=== PATIENT | male | born 1975 | race American Indian/Alaskan Native ===

== ENCOUNTER 2017-02-19 23:52 | Inpatient (IN) | payer OTHER ==
[2017-02-20 01:36] LABS: Basophils % (Auto) 0.6 % (0.0-1.8); Eosinophils % (Auto) 1.5 % (0.0-4.3); Hematocrit 44.9 % (35.5-45.6); Hemoglobin 14.9 gm/dl (11.8-15.2); Mean Corpuscular HGB Conc 33 % (32-34); Mean Corpuscular Hemoglobin 27 pg (28-32); Mean Corpuscular Volume 82 fl (84-94); Platelet Count 291 K/mm3 (140-440); Red Blood Count 5.45 M/mm3 (3.65-5.03); Red Cell Distribution Width 13.9 % (13.2-15.2); White Blood Count 8.5 K/mm3 (4.5-11.0)
[2017-02-20 02:07] LABS: Anion Gap 18 mmol/L; BUN/Creatinine Ratio 16.66; Blood Urea Nitrogen 15 mg/dL (9-20); Calcium 9.3 mg/dL (8.4-10.2); Carbon Dioxide 24 mmol/L (22-30); Chloride 102.2 mmol/L (98-107); Glucose 98 mg/dL (75-100); Potassium 3.8 mmol/L (3.6-5.0); Sodium 140 mmol/L (137-145)
--- NOTE | 2017-02-20 08:56 | Emergency Department Report ---
ED Chest Pain HPI - General Chief Complaint: Chest Pain Stated Complaint: CHEST PAIN Time Seen by Provider: 02/20/17 08:34 Source: patient Mode of arrival: Ambulatory Limitations: No Limitations - History of Present Illness Initial Comments: The patient describes recurrent substernal pressure which sometimes becomes a sharp pain for the last 3-4 days. It is nonexertional. It is not pleuritic. The patient has had some cough and occasional yellow sputum but no significant dyspnea and no fever or chills. He states he's never been to an emergency department nor had any evaluation of his heart in the past. He is unaware of any family history of VTE or CAD. He denies history of hypertension or hypercholesterolemia. I don't think he goes to the physician to often. He states he does not smoke except for very occasional "good cigar". MD Complaint: chest pain -: days(s) Onset: during rest Pain Location: substernal Pain Radiation: none Severity: mild, moderate Quality: pressure Consistency: intermittent, now resolved Improves With: nothing Worsens With: nothing Other Symptoms: cough. denies: fever, syncope, rash, acid taste in mouth, leg swelling, palpitations, burping Treatments Prior to Arrival: none Aspirin use within the Past 7 Days: (0) No - Related Data Home Medications Medication Instructions Recorded Confirmed Last Taken No Known Home Medications [No 07/17/16 07/17/16 Unknown Reported Home Medications] Allergies Allergy/AdvReac Type Severity Reaction Status Date / Time No Known Allergies Allergy Unverified 07/17/16 14:12 JOSE score - Jose Score Age > 65: (0) No Aspirin use within the Past 7 Days: (0) No 3 or more CAD Risk Factors: (0) No 2 or more Angina events in past 24 hrs: (0) No Known CAD with more than 50% Stenosis: (0) No Elevated Cardiac Markers: (0) No ST Deviation Greater than 0.5mm: (0) No JOSE Score: 0 ED Review of Systems ROS: Stated complaint: CHEST PAIN Other details as noted in HPI Constitutional: denies: chills, fever Eyes: denies: eye pain, eye discharge, vision change ENT: denies: ear pain, throat pain Respiratory: cough. denies: shortness of breath, wheezing Cardiovascular: chest pain. denies: palpitations Endocrine: no symptoms reported Gastrointestinal: denies: abdominal pain, nausea, diarrhea Genitourinary: denies: urgency, dysuria Musculoskeletal: denies: back pain, joint swelling, arthralgia Skin: denies: rash, lesions Neurological: denies: headache, weakness, paresthesias Psychiatric: denies: anxiety, depression Hematological/Lymphatic: denies: easy bleeding, easy bruising ED Past Medical Hx - Past Medical History Previous Medical History?: No - Surgical History Past Surgical History?: Yes Hx Appendectomy: Yes - Social History Smoking Status: Former Smoker Substance Use Type: None - Medications Home Medications: Home Medications Medication Instructions Recorded Confirmed Last Taken Type No Known Home Medications [No 07/17/16 07/17/16 Unknown History Reported Home Medications] ED Physical Exam - General Limitations: No Limitations General appearance: alert, in no apparent distress - Head Head exam: Present: atraumatic, normocephalic - Eye Eye exam: Present: normal appearance. Absent: scleral icterus - ENT ENT exam: Present: mucous membranes moist - Neck Neck exam: Present: normal inspection - Respiratory Respiratory exam: Present: normal lung sounds bilaterally. Absent: respiratory distress - Cardiovascular Cardiovascular Exam: Present: regular rate, normal rhythm. Absent: systolic murmur, diastolic murmur, rubs, gallop - GI/Abdominal GI/Abdominal exam: Present: soft, normal bowel sounds. Absent: distended, tenderness, guarding, rebound, rigid - Rectal Rectal exam: Present: deferred - Extremities Exam Extremities exam: Present: normal inspection, normal capillary refill. Absent: tenderness, pedal edema, joint swelling - Back Exam Back exam: Present: normal inspection - Neurological Exam Neurological exam: Present: alert, oriented X3, CN II-XII intact. Absent: motor sensory deficit - Psychiatric Psychiatric exam: Present: normal affect, normal mood - Skin Skin exam: Present: warm, dry, intact, normal color. Absent: rash ED Course Vital Signs 02/20/17 02/20/17 02/20/17 00:05 06:42 07:39 Temperature 98.4 F 98.2 F Pulse Rate 83 78 Respiratory 18 189 H Rate Blood Pressure 129/80 129/82 O2 Sat by Pulse 98 98 98 Oximetry 02/20/17 02/20/17 07:45 07:55 Temperature Pulse Rate 76 Respiratory 11 L 14 Rate Blood Pressure 120/68 O2 Sat by Pulse 97 95 Oximetry - Reevaluation(s) Reevaluation #1: Chest x-ray will be reviewed. The patient will be admitted to the hospitalist service for further care and evaluation. 02/20/17 08:56 Reevaluation #2: Discussed with Dr. Aj. Patient admitted to his service further care and evaluation stable condition. 02/20/17 09:08 ED Medical Decision Making - Lab Data Result diagrams: 02/20/17 00:13 02/20/17 00:13 Laboratory Results - last 24 hr 02/20/17 02/20/17 02/20/17 00:13 00:13 03:12 WBC 8.5 RBC 5.45 H Hgb 14.9 Hct 44.9 MCV 82 L MCH 27 L MCHC 33 RDW 13.9 Plt Count 291 Lymph % (Auto) 28.4 [place] % (Auto) 10.6 H Eos % (Auto) 1.5 Baso % (Auto) 0.6 Lymph # 2.4 [place] # 0.9 H Eos # 0.1 Baso # 0.1 Seg Neutrophils % 58.9 Seg Neutrophils # 5.0 Sodium 140 Potassium 3.8 Chloride 102.2 Carbon Dioxide 24 Anion Gap 18 BUN 15 Creatinine 0.9 Estimated GFR > 60 BUN/Creatinine Ratio 16.66 Glucose 98 Calcium 9.3 Troponin T < 0.010 < 0.010 02/20/17 06:11 WBC RBC Hgb Hct MCV MCH MCHC RDW Plt Count Lymph % (Auto) [place] % (Auto) Eos % (Auto) Baso % (Auto) Lymph # [place] # Eos # Baso # Seg Neutrophils % Seg Neutrophils # Sodium Potassium Chloride Carbon Dioxide Anion Gap BUN Creatinine Estimated GFR BUN/Creatinine Ratio Glucose Calcium Troponin T < 0.010 - EKG Data -: EKG Interpreted by Me EKG shows normal: sinus rhythm, axis, intervals, QRS complexes, ST-T waves Rate: normal - EKG Data Interpretation: no acute changes - Radiology Data interpreted by me: Chest x-ray no acute process Critical care attestation.: If time is entered above; I have spent that time in minutes in the direct care of this critically ill patient, excluding procedure time. ED Disposition Clinical Impression: Chest pain Qualifiers: Chest pain type: unspecified Qualified Code(s): R07.9 - Chest pain, unspecified Acute bronchitis Qualifiers: Bronchitis organism: unspecified organism Qualified Code(s): J20.9 - Acute bronchitis, unspecified Disposition: OP ADMITTED IP TO THIS HOSP Is pt being admited?: Yes Does the pt Need Aspirin: Yes Condition: Stable Instructions: Chest Pain (ED), Acute Bronchitis (ED) Referrals: PRIMARY CARE, [Primary Care Provider] - 3-5 Days Time of Disposition: 09:10
[2017-02-20 09:05] LABS: Urine Drugs of Abuse Note Disclamer
--- NOTE | 2017-02-20 09:18 | XRay Report ---
CHEST ONE VIEW INDICATION: Hypertension. COMPARISON: None similar at this institution. FINDINGS: Portable, single, frontal chest radiograph demonstrates normal cardiomediastinal silhouette. Clear lungs. Intact bones. Extrinsic EKG leads. CONCLUSION: No acute disease in the chest. Thank you for the opportunity to participate in this patient's care.
--- NOTE | 2017-02-20 09:23 | Admit Criteria Form ---
Admission Criteria Documentation: CARDIOLOGY GRG Clinical Indications for Admission to Inpatient Care ( Place 'X' for any and all applicable criteria): Hospital admission is needed for appropriate care of the patient because of ANY ONE of the following (1): [ ] I. Hemodynamic instability as indicated by ALL of the following (1)(2)(3) (4)(5) [ ]a) Vital signs or other findings not as expected for chronic patient condition or baseline [ ]b) Instability indicated by ANY ONE of the following: [ ]i) Hypotension [ ]ii) Symptomatic Tachycardia unresponsive to treatment ( e.g., analgesia, fluids, sedation as indicated) [ ]iii) Inadequate perfusion indicated by ANY ONE of the following: [ ] 1) Lactic acidosis (> 2 mmol/L) [ ] 2) New abnormal capillary refill (> 3 seconds) [ ] 3) Reduced urine output [ ] 4) New altered mental status [ ]iv) Orthostatic vital sign changes unresponsive to treatment (e.g., fluids) [ ]v) IV inotropic or vasopressor medication required to maintain adequate blood pressure or perfusion [ ] II. Severe heart failure as indicated by ANY ONE of the following(17)(18) [ ]a) Respiratory distress [ ]b) Hypotension [ ]c) Anasarca (refractory to outpatient therapy) [ ]d) Cardiac arrhythmias of immediate concern [ ]e) Myocardial ischemia [ ] III. Cardiac arrhythmias or findings of immediate concern indicated by ANY ONE of the following (19)(20): [ ] a) Heart rhythms that are inherently dangerous or unstable indicated by ANY ONE of the following (21)(22)(23): [ ] i) Resuscitated ventricular fibrillation or cardiac arrest [ ] ii) Ventricular escape rhythm [ ] iii) Sustained ventricular tachycardia (30 seconds or more of ventricular rhythm at greater than 100 beats per minute) [ ] iv) Nonsustained ventricular tachycardia and ANY ONE of the following: [ ] 1) Suspected cardiac ischemia as cause or consequence of ventricular tachycardia [ ] 2) In setting of acute myocarditis [ ] b) Unstable cardiac conduction defects indicated by ANY ONE of the following(23)(24)(25) [ ] i) Type II second-degree atrioventricular block [ ]ii) Third-degree atrioventricular block [ ]iii) New-onset left bundle branch block with suspected myocardial ischemia [ ]c) Any heart rhythm and ANY ONE of the following (21)(22)(26)(27) (28) [ ] i) Continuous long-term ECG monitoring needed (e.g., initiation of drug requiring monitoring for more than 24 hours) [ ] ii) Patient has automatic implanted cardioverter defibrillator that is repeatedly firing, malfunctioning, or in need of immediate adjustment of settings beyond the scope of ambulatory or observation care [ ]d) Heart rhythms of concern due to ANY ONE of the following: [ ] i) Hypotension [ ] ii) Respiratory distress [ ] iii) Association with other significant symptoms (e.g., bradycardia with syncope or ongoing dizziness, supraventricular tachycardia with chest pain (14)(15)(17) [ ] IV. Monitoring for cardiac contusion beyond the scope of observation care needed [A](30)(31)(32) [ ] V. Surgical or device complication (e.g., valve replacement complication , pacemaker dysfunction) (35)(41)(44)(45)(46) [ ] . Inpatient palliative care needed. [B](49) Also use Inpatient Palliative Care Criteria [ ] VII. Nonbacterial thrombotic (marantic) endocarditis (36)(43)(47)(48) [X] VIII. Cardiology condition, symptom, or finding for which emergency and observation care has failed or are not considered appropriate. [ ] IX. Acute valvular disease requiring inpatient as indicated by ANY ONE of the following (41) [ ]a) Acute valvular regurgitation (42) [ ]b) Noninfectious valvulitis (43) [ ]c) Obstructive valve thrombosis [ ]d) Paravalvular leak [ ]e) Other significant valvular disorder remaining after emergency or observation level of care (as appropriate) [ ]X. Pericardial disease requiring inpatient treatment as indicated by ANY ONE of the following (33)(34)(35)(36)(37) [ ]a) Suspected tamponade (38)(39)(40) [ ]b) Hemopericardium [ ]c) Other significant pericardial disorder remaining after emergency or observation level of care (as appropriate) [ ] XI. Cardiac ischemia beyond scope of emergency and observation care. [ ] XII. Hypertension requiring inpatient treatment as indicated by ANY ONE of the following (6)(7)(8) [ ]a) SBP greater than 220 mm Hg or DBP greater than 120 mmHg despite treatment [ ]b) SBP greater than 140 mm Hg or DBP greater than 100 mm Hg with evidence of acute end organ damage as indicated by ANY ONE of the following [ ] i) Altered mental status [ ] ii) Acute renal failure as indicated by new onset of ANY ONE of the following (9)(10)(11)(12)(13) [ ]1) 3-fold rise in serum creatinine from baseline [ ]2) Serum creatinine greater than 4 mg/dL ( 354 micromoles/L) with acute rise greater than 0.5 mg/dL (44.2 micromoles/L) [ ]3) Reduction of more than 75% in estimated glomerular filtration rate from baseline [ ]4) Estimated glomerular filtration rate less than 35 mL/min/1.73m2 (0.59 mL/sec/1.73m2) in child up to 18 years of age [ ]5) Cessation of urine output indicated by ALL of the following [ ]A. Adequate volume status [ ]B. Inadequate urine output as indicated by ANY ONE of the following [ ]a. Urine output less than 0.3 mL/kg/hr for 24 hours [ ]b. Anuria (urine output less than 0.1 mL/kg/hr) for 12 hours [ ] iii) Aortic dissection [ ] iv) Myocardial Ischemia [ ] v) Left ventricular heart failure [ ]vi) Retinal Hemorrhage [ ]vii) Other significant finding [ ]c) Hypertension in child requiring inpatient treatment as indicated by ALL of the following(14)(15)(16) [ ] i) Outpatient treatment not effective, not available, or not appropriate [ ]ii) SBP or DBP greater than 95th percentile for age [ ]iii) Evidence of acute end organ damage as indicated by ANY ONE of the following [ ]1) Altered mental status [ ]2) Acute renal failure as indicated by new onset of ANY ONE of the following(9)(10)(11)(12)(13) [ ]A. 3-fold rise in serum creatinine from baseline [ ]B. Serum creatinine greater than 4 mg/dL (354 micromoles/L) with acute rise greater than 0.5 mg/dL (44.2 micromoles/L) [ ]C. Reduction of more than 75% in estimated glomerular filtration rate from baseline [ ]D. Estimated glomerular filtration rate less than 35 mL/min/1.73m2 (0.59 mL/sec/1.73m2) in child up to 18 years of age [ ]E. Cessation of urine output indicated by ALL of the following [ ]a. Adequate volume status [ ]b. Inadequate urine output as indicated by ANY ONE of the following [ ]i) Urine output less than 0.3 mL/kg/hr for 24 hours [ ]ii) Anuria ( urine output less than 0.1 mL/kg/hr) for 12 hours [ ]3) Severe headache [ ]4) Visual disturbance [ ]5) Retinal hemorrhage [ ]6) Other significant finding [ ]XIII. Complications of transplanted heart indicated by ANY ONE of the following(61): [ ]a) Acute graft rejection requiring inpatient management (eg, intravenous immunosuppression)(62)(63) [ ]b) Acute graft heart failure indicated by ANY ONE of the following(64): [ ]i) Hemodynamic instability [ ]ii) Cardiac arrhythmias of immediate concern [ ]iii) Pulmonary edema that is very severe (eg, mechanical ventilation needed, imminent or likely, need for 100% oxygen to keep oxygen saturation above 90%) [ ]iv) Pulmonary edema that is persistent as indicated by ALL of the following: [ ]1) New need for oxygen therapy to keep oxygen saturation above 90% (or increased FiO2 need from baseline) [ ]2) Has not improved sufficiently with emergency department or observation care IV diuretics or other heart failure treatments[E] [ ]v) Altered mental status that is severe or persistent [ ]vi) Increased creatinine (new on laboratory test) with reduction of more than 50% in estimated glomerular filtration rate from baseline [ ]vii) Progressively (ongoing) rising creatinine (known from past laboratory test) with reduction of more than 25% in estimated glomerular filtration rate from baseline [ ]viii) Acute renal failure [ ]ix) Acute peripheral ischemia (eg, examination shows pulseless, cool, mottled, or cyanotic extremity) [ ]x) Pulmonary artery catheter monitoring needed [ ]xi) Other sign or symptom of heart failure requiring inpatient treatment (ie, too severe or not responsive to outpatient and observation care treatment) [ ]c) Infection requiring inpatient management (eg, Hemodynamic instability, need for intravenous antimicrobial treatment)(66)(67)(68)(69)(70) [ ]d) Cardiac allograft vasculopathy requiring inpatient management ( eg evidence of cardiac ischemia)(71) [ ]e) Other complication of transplanted heart (eg, stroke, severe pulmonary hypertension, severe valvular dysfunction) requiring inpatient management(72) The original [facility] content created by [facility] has been revised. The portions of the content which have been revised are identified through the use of italic text or in bold, and [facility] has neither reviewed nor approved the modified material. All other unmodified content is copyright [facility] [employer]. Please see references footnoted in the original [facility] [employer] edition 2016 Admission Criteria Met: Yes
[2017-02-20 09:39] LABS: Bilirubin,Urine NEG (Negative); Blood,Urine NEG (Negative); Ketones,Urine NEG (Negative); Leukocyte Esterase,Urine NEG (Negative); Nitrite,Urine NEG (Negative); Protein,Urine <15 mg/dL mg/dL (Negative); RBC,Urine < 1.0 /HPF (0.0-6.0); Urobilinogen,Urine < 2.0 mg/dL (<2.0)
[2017-02-20 09:46] LABS: Alanine Aminotransferase 24 units/L (7-56); Albumin 4.2 g/dL (3.9-5); Albumin/Globulin Ratio 1.4 %; Alkaline Phosphatase 62 units/L (35-129); Total Protein 7.1 g/dL (6.3-8.2)
[2017-02-20 09:47] LABS: Bilirubin,Direct < 0.2 mg/dL (0-0.2)
[2017-02-20 09:59] LABS: INR 1.03 (0.87-1.13); Partial Thromboplastin Time 32.3 Sec. (24.2-36.6)
[2017-02-20] MEDS: ASPIRIN PO SCH (09:59)
[2017-02-20] MEDS: LOVENOX SUB-Q SCH (09:59)
[2017-02-20] MEDS ORDERED: ZOFRAN IV PRN (10:07)
[2017-02-20] MEDS ORDERED: TYLENOL PO PRN (10:07)
[2017-02-20] MEDS ORDERED: DULCOLAX PR PRN (10:07)
[2017-02-20] MEDS ORDERED: MILK OF MAGNESIA PO PRN (10:07)
[2017-02-20] MEDS ORDERED: SODIUM CHLORIDE FLUSH SYRINGE 10 ML IV PRN (10:07)
--- NOTE | 2017-02-20 10:07 | History and Physical Report ---
History of Present Illness Date of examination: 02/20/17 Date of admission: 02/20/17 Chief complaint: cp History of present illness: This is a 41-year-old male presents with chief complaint of substernal pressure and sharp pain for the past 3-4 days. Patient denies any alleviating or exacerbating factors. Patient reports some occasional shortness of breath. Patient reports some cough of occasional yellow sputum production. He denies any fever or chills. No headache or visual disturbances. No PND or orthopnea. No lower extremity edema. Patient denies any family history for CAD or any evaluation of his heart in the past. Past History Past Medical History: No medical history Past Surgical History: appendectomy Social history: no significant social history Family history: no significant family history Medications and Allergies Allergies Allergy/AdvReac Type Severity Reaction Status Date / Time No Known Allergies Allergy Unverified 07/17/16 14:12 Home Medications Medication Instructions Recorded Confirmed Last Taken Type No Known Home Medications [No 07/17/16 07/17/16 Unknown History Reported Home Medications] Active Meds: Active Medications Aspirin (Aspirin) 325 mg PO QDAY [facility] Last Admin: 02/20/17 09:59 Dose: 325 mg Enoxaparin Sodium (Lovenox) 30 mg SUB-Q QDAY [facility] Last Admin: 02/20/17 09:59 Dose: 30 mg Review of Systems All systems: negative Exam - Constitutional Vitals: Temp Pulse Resp BP Pulse Ox 98.2 F 78 19 113/65 95 02/20/17 06:42 02/20/17 09:30 02/20/17 09:30 02/20/17 09:30 02/20/17 09:30 General appearance: Present: no acute distress, well-nourished - EENT Eyes: Present: PERRL ENT: hearing intact, clear oral mucosa - Neck Neck: Present: supple, normal ROM - Respiratory Respiratory effort: normal Respiratory: bilateral: CTA - Cardiovascular Heart Sounds: Present: S1 & S2. Absent: rub, click - Extremities Extremities: pulses symmetrical, No edema Peripheral Pulses: within normal limits - Abdominal General gastrointestinal: Present: soft, non-tender, non-distended, normal bowel sounds Male genitourinary: Present: normal - Integumentary Integumentary: Present: clear, warm, dry - Musculoskeletal Musculoskeletal: gait normal, strength equal bilaterally - Psychiatric Psychiatric: appropriate mood/affect, intact judgment & insight - Neurologic Neurologic: CNII-XII intact, moves all extremities Results - Labs CBC & Chem 7: 02/20/17 00:13 02/20/17 00:13 Labs: Laboratory Last Values WBC 8.5 K/mm3 (4.5-11.0) 02/20/17 00:13 RBC 5.45 M/mm3 (3.65-5.03) H 02/20/17 00:13 Hgb 14.9 gm/dl (11.8-15.2) 02/20/17 00:13 Hct 44.9 % (35.5-45.6) 02/20/17 00:13 MCV 82 fl (84-94) L 02/20/17 00:13 MCH 27 pg (28-32) L 02/20/17 00:13 MCHC 33 % (32-34) 02/20/17 00:13 RDW 13.9 % (13.2-15.2) 02/20/17 00:13 Plt Count 291 K/mm3 (140-440) 02/20/17 00:13 Lymph % (Auto) 28.4 % (13.4-35.0) 02/20/17 00:13 [place] % (Auto) 10.6 % (0.0-7.3) H 02/20/17 00:13 Eos % (Auto) 1.5 % (0.0-4.3) 02/20/17 00:13 Baso % (Auto) 0.6 % (0.0-1.8) 02/20/17 00:13 Lymph # 2.4 K/mm3 (1.2-5.4) 02/20/17 00:13 [place] # 0.9 K/mm3 (0.0-0.8) H 02/20/17 00:13 Eos # 0.1 K/mm3 (0.0-0.4) 02/20/17 00:13 Baso # 0.1 K/mm3 (0.0-0.1) 02/20/17 00:13 Seg Neutrophils % 58.9 % (40.0-70.0) 02/20/17 00:13 Seg Neutrophils # 5.0 K/mm3 (1.8-7.7) 02/20/17 00:13 PT 13.4 Sec. (12.2-14.9) 02/20/17 09:09 INR 1.03 (0.87-1.13) 02/20/17 09:09 APTT 32.3 Sec. (24.2-36.6) 02/20/17 09:09 Sodium 140 mmol/L (137-145) 02/20/17 00:13 Potassium 3.8 mmol/L (3.6-5.0) 02/20/17 00:13 Chloride 102.2 mmol/L (98-107) 02/20/17 00:13 Carbon Dioxide 24 mmol/L (22-30) 02/20/17 00:13 Anion Gap 18 mmol/L 02/20/17 00:13 BUN 15 mg/dL (9-20) 02/20/17 00:13 Creatinine 0.9 mg/dL (0.8-1.5) 02/20/17 00:13 Estimated GFR > 60 ml/min 02/20/17 00:13 BUN/Creatinine Ratio 16.66 % 02/20/17 00:13 Glucose 98 mg/dL (75-100) 02/20/17 00:13 Calcium 9.3 mg/dL (8.4-10.2) 02/20/17 00:13 Total Bilirubin 0.40 mg/dL (0.1-1.2) 02/20/17 09:09 Direct Bilirubin < 0.2 mg/dL (0-0.2) 02/20/17 09:09 AST 23 units/L (5-40) 02/20/17 09:09 ALT 24 units/L (7-56) 02/20/17 09:09 Alkaline Phosphatase 62 units/L (35-129) 02/20/17 09:09 Troponin T < 0.010 ng/mL (0.00-0.029) 02/20/17 06:11 NT-Pro-B Natriuret Pep < 5 pg/mL (0-450) 02/20/17 09:09 Total Protein 7.1 g/dL (6.3-8.2) 02/20/17 09:09 Albumin 4.2 g/dL (3.9-5) 02/20/17 09:09 Albumin/Globulin Ratio 1.4 % 02/20/17 09:09 Urine Color Yellow (Yellow) 02/20/17 07:47 Urine Turbidity Clear (Clear) 02/20/17 07:47 Urine pH 5.0 (5.0-7.0) 02/20/17 07:47 Ur Specific [place] 1.017 (1.003-1.030) 02/20/17 07:47 Urine Protein <15 mg/dl mg/dL (Negative) 02/20/17 07:47 Urine Glucose (UA) Neg mg/dL (Negative) 02/20/17 07:47 Urine Ketones Neg mg/dL (Negative) 02/20/17 07:47 Urine Blood Neg (Negative) 02/20/17 07:47 Urine Nitrite Neg (Negative) 02/20/17 07:47 Urine Bilirubin Neg (Negative) 02/20/17 07:47 Urine Urobilinogen < 2.0 mg/dL (<2.0) 02/20/17 07:47 Ur Leukocyte Esterase Neg (Negative) 02/20/17 07:47 Urine WBC (Auto) 1.0 /HPF (0.0-6.0) 02/20/17 07:47 Urine RBC (Auto) < 1.0 /HPF (0.0-6.0) 02/20/17 07:47 U Epithel Cells (Auto) < 1.0 /HPF (0-13.0) 02/20/17 07:47 Assessment and Plan Assessment and plan: Chest pain. Patient will be placed on chest pain pathway. Follow-up EKG, cardiac enzymes and schedule for stress thallium in a.m. Acute bronchitis. Patient will be treated with IV antibiotics.
[2017-02-20 10:55] LABS: Creatine Kinase 328 units/L (55-170); Creatine Kinase MB 2.6 ng/mL (0.0-4.0)
[2017-02-20] MEDS ORDERED: NACL 0.9% 1000 ML 1,000 ML IV SCH (11:00)
[2017-02-20] MEDS ORDERED: LEXISCAN IV ONE (11:35)
[2017-02-20 15:57] LABS: Creatine Kinase MB 2.3 ng/mL (0.0-4.0)
[2017-02-20 15:58] LABS: Creatine Kinase 288 units/L (55-170)
[2017-02-20 17:17] LABS: Creatine Kinase MB 2.4 ng/mL (0.0-4.0)
[2017-02-20 17:18] LABS: Creatine Kinase 311 units/L (55-170)
[2017-02-21 06:52] LABS: Basophils % (Auto) 0.9 % (0.0-1.8); Eosinophils % (Auto) 2.2 % (0.0-4.3); Hematocrit 50.3 % (35.5-45.6); Hemoglobin 16.3 gm/dl (11.8-15.2); Mean Corpuscular HGB Conc 33 % (32-34); Mean Corpuscular Hemoglobin 27 pg (28-32); Mean Corpuscular Volume 84 fl (84-94); Platelet Count 298 K/mm3 (140-440); Red Blood Count 5.97 M/mm3 (3.65-5.03); Red Cell Distribution Width 13.9 % (13.2-15.2); White Blood Count 6.4 K/mm3 (4.5-11.0)
[2017-02-21 07:16] LABS: Anion Gap 16 mmol/L; BUN/Creatinine Ratio 11.11; Blood Urea Nitrogen 10 mg/dL (9-20); Calcium 8.8 mg/dL (8.4-10.2); Carbon Dioxide 26 mmol/L (22-30); Chloride 102.7 mmol/L (98-107); Glucose 108 mg/dL (75-100); Potassium 3.9 mmol/L (3.6-5.0); Sodium 141 mmol/L (137-145)
--- NOTE | 2017-02-21 07:54 | Discharge Summary ---
Providers - Providers Date of Admission: 02/20/17 10:08 Date of discharge: 02/21/17 Attending physician: ANANT KRISHNAN Primary care physician: [employer] Hospitalization Reason for admission: cp Condition: Stable Pertinent studies: stress test Procedures: stress test Hospital course: This is a 41-year-old male presented with chief complaint of substernal pressure and sharp pain for the past 3-4 days. Patient denies any alleviating or exacerbating factors. Patient reports some occasional shortness of breath. Patient reports some cough of occasional yellow sputum production. He denies any fever or chills. No headache or visual disturbances. No PND or orthopnea. No lower extremity edema. Patient denies any family history for CAD or any evaluation of his heart in the past. Patient's chest x-ray was found to be negative with no acute findings. Patient underwent stress thallium to be negative for ischemia. Cardiac isoenzymes and EKG are also found to be negative. Patient's chest pain resolved during hospitalization. Patient is currently pain-free. Patient is felt to have received maximal hospital benefit. Therefore, patient will be discharged home. Dedicated discharge time 31 minutes. Disposition: DISCHARGED TO HOME OR SELFCARE Time spent for discharge: 31 - Discharge Diagnoses (1) Acute bronchitis Status: Acute Qualifiers: Bronchitis organism: unspecified organism Qualified Code(s): J20.9 - Acute bronchitis, unspecified (2) Chest pain Status: Acute Qualifiers: Chest pain type: unspecified Qualified Code(s): R07.9 - Chest pain, unspecified Core Measure Documentation - Palliative Care Palliative Care/ Comfort Measures: Not Applicable - Core Measures Any of the following diagnoses?: none Exam - Constitutional Vitals: Temp Pulse Resp BP Pulse Ox 97.5 F L 62 18 112/74 98 02/21/17 00:00 02/21/17 00:00 02/21/17 00:00 02/21/17 00:00 02/21/17 00:00 General appearance: Present: no acute distress, well-nourished - EENT Eyes: Present: PERRL ENT: hearing intact, clear oral mucosa - Neck Neck: Present: supple, normal ROM - Respiratory Respiratory effort: normal Respiratory: bilateral: CTA - Cardiovascular Heart Sounds: Present: S1 & S2. Absent: rub, click - Extremities Extremities: pulses symmetrical, No edema Peripheral Pulses: within normal limits - Abdominal General gastrointestinal: Present: soft, non-tender, non-distended, normal bowel sounds Male genitourinary: Present: normal - Integumentary Integumentary: Present: clear, warm, dry - Musculoskeletal Musculoskeletal: gait normal, strength equal bilaterally - Psychiatric Psychiatric: appropriate mood/affect, intact judgment & insight - Neurologic Neurologic: CNII-XII intact, moves all extremities Plan Activity: no restrictions Weight Bearing Status: Full Weight Bearing Diet: regular Follow up with: PRIMARY CARE, [Primary Care Provider] - 3-5 Days Prescriptions: Aspirin [Aspirin TAB] 325 mg PO QDAY #30 tablet Azithromycin [Zithromax Z-SHANE] 0 mg PO DAILY #1 tab
--- NOTE | 2017-02-21 08:34 | Treadmill Report ---
Resting perfusion images revealed homogeneous radioisotope activity. On Myoview, there is again homogeneous radioisotope activity noted throughout the myocardium. Left ventricular systolic function was noted to be normal with ejection fraction of 61%. Right ventricle was normal. There is no transient ischemic dilatation. IMPRESSION: Normal perfusion study of the myocardium. JOB# [id number] LENORA/NTS
[2017-02-21] MEDS: ASPIRIN PO SCH (10:50)
[2017-02-21] MEDS: LOVENOX SUB-Q SCH (10:51)
[2017-02-21 13:37] VITALS: BP 120/60
[2017-02-22] MEDS ORDERED: LOVENOX SUB-Q SCH (10:00)
== END 2017-02-21 13:00 | disposition home or self-care (01) | DRG 203 ==
LOC: ED 23:52 → 3A 02-20 10:08
PROVIDERS: ADMIT Hospitalist; ATTEND Hospitalist
PROC: 4A02XM4 Measurement of Cardiac Total Activity, External Approach (ICD-10-PCS; principal; 2017-02-20)
PROC: 3E033HZ Introduction of Radioactive Substance into Peripheral Vein, Percutaneous Approach (ICD-10-PCS; 2017-02-20)
DX: J20.9 Acute bronchitis, unspecified (principal); R07.9 Chest pain, unspecified; Z90.49 Acquired absence of other specified parts of digestive tract
CPT/HCPCS: 36415; 71010; 78452; 80048; 80074; 80307; 81001; 82550; 82553; 83880; 84484; 85025; 85610; 85730; 93005; 93010; 93017; 96372; 99406; A9502; J1650; J2785; J7030